=== PATIENT | female | born 1990 ===

== ENCOUNTER 2018-06-01 16:51 | Emergency (ER) | payer MEDICAID ==
[2018-06-01 16:51] VITALS: BMI 36.5
--- NOTE | 2018-06-01 18:14 | ED PDOC ---
HPI: General Adult Time Seen by Provider: 06/01/18 17:15 Chief Complaint (Nursing): Abnormal Labs Chief Complaint (Provider): Repeat Labs History Per: Patient History/Exam Limitations: no limitations Onset/Duration Of Symptoms: Days Current Symptoms Are (Timing): Still Present Additional Complaint(s): [place] Blackburn is a 28 year old female with no past medical history who is presenting to the ED for a repeat Beta-HCG. Patient was seen in [place] 2 days ago and today reports no vaginal bleeding or pain. She offers no other medical complaints at this time. Beta was 1598 on 05/30/18 PMD: none provided Past Medical History Reviewed: Historical Data, Nursing Documentation, Vital Signs Vital Signs: Last Vital Signs Temp 98.7 F 06/01/18 16:59 Pulse 85 06/01/18 16:59 Resp 16 06/01/18 16:59 BP 118/71 06/01/18 16:59 Pulse Ox 100 06/01/18 16:59 - Medical History PMH: No Chronic Diseases - Surgical History Surgical History: No Surg Hx - Family History Family History: States: Unknown Family Hx - Social History Current smoker - smoking cessation education provided: No Alcohol: None Drugs: Denies - Home Medications Home Medications: Ambulatory Orders Medication Instructions Recorded Nitrofurantoin Macrocrystals 100 mg PO BID #14 cap 05/30/18 [Macrobid] - Allergies Allergies/Adverse Reactions: Allergies Allergy/AdvReac Type Severity Reaction Status Date / Time No Known Allergies Allergy Verified 05/30/18 13:29 Review of Systems ROS Statement: Except As Marked, All Systems Reviewed And Found Negative Genitourinary Female: Negative for: Vaginal Bleeding, Pelvic Pain Physical Exam - Reviewed Nursing Documentation Reviewed: Yes Vital Signs Reviewed: Yes - Physical Exam Appears: Positive for: Well, Non-toxic, No Acute Distress Head Exam: Positive for: ATRAUMATIC, NORMAL INSPECTION, NORMOCEPHALIC Skin: Positive for: Normal Color Eye Exam: Positive for: Normal appearance Cardiovascular/Chest: Negative for: Bradycardia, Tachycardia Respiratory: Negative for: Accessory Muscle Use, Respiratory Distress Gastrointestinal/Abdominal: Positive for: Normal Exam, Soft. Negative for: Tenderness Neurologic/Psych: Positive for: Alert, Oriented. Negative for: Motor/Sensory Deficits - ECG O2 Sat by Pulse Oximetry: 100 (RA) Pulse Ox Interpretation: Normal Medical Decision Making Medical Decision Making: Time: 17:47 Plan: --Beta-HCG, Quantitative Discussed rise in hormones and what is expected. Discussed repeat US and was is likely to be seen at current hormone level. Pt denies bleeding. PT denies pelvic pain. Scribe Attestation: Documented by Alejandra Pennington, acting as a scribe for Alanna Nichole PA-C. Provider Scribe Attestation: All medical record entries made by the Scribe were at my direction and personally dictated by me. I have reviewed the chart and agree that the record accurately reflects my personal performance of the history, physical exam, medical decision making, and the department course for this patient. I have also personally directed, reviewed, and agree with the discharge instructions and disposition. Disposition - Clinical Impression Clinical Impression: - Disposition Disposition: Routine/Home Disposition Time: 18:39 Condition: GOOD Instructions: Medications and , Care Forms: [employer] (Beninese)
[2018-06-01 18:53] VITALS: BP 122/80; PULSE 72; RESP 18; TEMP 98; O2SAT 99
== END 2018-06-01 18:52 | disposition home or self-care (01) ==
LOC: H.ER 16:51
DX: Z32.01 Encounter for pregnancy test, result positive (principal)

== ENCOUNTER 2018-06-12 09:48 | Emergency (ER) | payer MEDICAID ==
[2018-06-12 09:48] VITALS: BMI 36.5
[2018-06-12 09:57] VITALS: RESP 18
--- NOTE | 2018-06-12 10:13 | ED PDOC ---
HPI: General Adult Time Seen by Provider: 06/12/18 10:04 Chief Complaint (Provider): Repeat Beta HCG History Per: Patient History/Exam Limitations: no limitations Additional Complaint(s): 28 year old female returns the ED For repeat Beta HCG labs and follow up for threatened . Patient was seen on 05/30 with Beta HCG of 3000 and inconclusive transvaginal US. Denies bleeding, abdominal pain, or cramping today. PMD: none provided Past Medical History Reviewed: Historical Data, Nursing Documentation, Vital Signs Vital Signs: Last Vital Signs Temp 98.3 F 06/12/18 09:56 Pulse 65 06/12/18 09:56 Resp 18 06/12/18 09:56 BP 112/60 06/12/18 09:56 Pulse Ox 99 06/12/18 09:56 - Medical History PMH: No Chronic Diseases - Surgical History Surgical History: No Surg Hx - Family History Family History: States: Unknown Family Hx - Home Medications Home Medications: Ambulatory Orders Medication Instructions Recorded Nitrofurantoin Macrocrystals 100 mg PO BID #14 cap 05/30/18 [Macrobid] - Allergies Allergies/Adverse Reactions: Allergies Allergy/AdvReac Type Severity Reaction Status Date / Time No Known Allergies Allergy Verified 05/30/18 13:29 Review of Systems ROS Statement: Except As Marked, All Systems Reviewed And Found Negative Gastrointestinal: Negative for: Abdominal Pain Physical Exam - Reviewed Nursing Documentation Reviewed: Yes Vital Signs Reviewed: Yes - Physical Exam Appears: Positive for: Non-toxic, No Acute Distress Head Exam: Positive for: ATRAUMATIC, NORMOCEPHALIC Skin: Positive for: Normal Color, Warm, Dry Eye Exam: Positive for: Normal appearance Neck: Positive for: Normal, Painless ROM Gastrointestinal/Abdominal: Positive for: Normal Exam, Soft. Negative for: Tenderness Extremity: Positive for: Normal ROM Neurologic/Psych: Positive for: Alert, Oriented. Negative for: Motor/Sensory Deficits - ECG O2 Sat by Pulse Oximetry: 99 (RA) Pulse Ox Interpretation: Normal Medical Decision Making Medical Decision Making: Initial Plan: --Beta HCG --Transvaginal US Scribe Attestation: Documented by Jayson Alexander acting as a scribe for Mauricio Sheldon MD. Provider Scribe Attestation: All medical record entries made by the Scribe were at my direction and personally dictated by me. I have reviewed the chart and agree that the record accurately reflects my personal performance of the history, physical exam, medical decision making, and the department course for this patient. I have also personally directed, reviewed, and agree with the discharge instructions and disposition. Disposition - Clinical Impression Clinical Impression: Threatened miscarriage - Patient ED Disposition Is Patient to be Admitted: No Counseled Patient/Family Regarding: Studies Performed, Diagnosis, Need For Followup - Disposition Referrals: [facility] [Outside] Disposition: Routine/Home Disposition Time: 12:50 Condition: FAIR Instructions: Threatened Miscarriage
--- NOTE | 2018-06-12 12:53 | US ---
Date of service: 06/12/2018 HISTORY: r/o ectopic COMPARISON: [facility] study 05/30/2018 TECHNIQUE: Transvaginal FINDINGS: UTERUS: Measures there is prominent decidual reaction and a intrauterine gestational sac whose mean sac diameter is 1 cm this is out of range. A tiny yolk sac 3 mm in size is present in the embryonic pole is also suggested probably at 0.21 cm corresponding to a 5 week 5 day gestation. The prior Amber gestational sac hemorrhagic focus is no longer seen. Compared the prior study the shape in the overall size of the gestational sac appears increased. Nevertheless no definite embryonic cardiac activity could be defined at this setting. RIGHT OVARY: Measures 2.6 x 2.0 x 1.5 cm. No solid mass. Normal flow. LEFT OVARY: Measures 3.4 x 2.2 x 2.4 cm a cm. A small hyperdense sub cm focus within the left ovary probably relates to a corpus luteal minimally complicated cysts. Normal flow. FREE FLUID: No significant free fluid noted. OTHER FINDINGS: None. IMPRESSION: Although the intrauterine gestational sac of appear slightly larger and slightly more rounded in appearance and is normal in position near the fundus, no definite embryonic cardiac activity could be identified at this setting. A small yolk sac is present. The gestational sac is out of range-emboli less than 6 weeks of gestation. The embryonic pole is estimated to be 5 weeks 5 days. No ectopic is identified. Pseudo gestational sac although not excluded is bleed less likely. Patient with serial beta HCG levels is advised. Patient's LMP is 04/19/2018 which had corresponds to a 7 week 5 day gestation per LMP. The ultrasound imaging appearance is not compatible with a viable 7 week 5 day gestation. A less advanced early intrauterine gestation is still a consideration. No gross adnexal masses seen. Consider continued serial beta HCG level follow-up as well as follow-up imaging in approximately 1 week to reassess. No adnexal masses to suggest ectopic noted. Please see above comments. Prior perigestational hemorrhage not currently visualized. No interval gestational hemorrhage noted. Continued follow-up is advised.
[2018-06-12 13:11] VITALS: BP 134/85; PULSE 73; TEMP 98.6; O2SAT 98
== END 2018-06-12 13:12 | disposition home or self-care (01) ==
LOC: H.ER 09:48
DX: O20.0 Threatened abortion (principal); Z3A.01 Less than 8 weeks gestation of pregnancy

== ENCOUNTER 2018-06-12 20:07 | Emergency (ER) | payer MEDICAID ==
[2018-06-12 20:07] VITALS: BMI 36.5
[2018-06-12 20:33] VITALS: RESP 16
--- NOTE | 2018-06-12 21:17 | ED PDOC ---
HPI: Female Pain Time Seen by Provider: 06/12/18 20:35 Chief Complaint (Nursing): Female Genitourinary Chief Complaint (Provider): ; vaginal bleeding History Per: Patient History/Exam Limitations: no limitations Onset/Duration Of Symptoms: Hrs (2) Current Symptoms Are (Timing): Better Additional Complaint(s): 28 y/o female presents for evaluation of vaginal bleeding x 2 hours. Patient states she was in ED on 05/30 for mild spotting which resolved that day, and then followed up 06/01, and today to have her beta levels checked. Patient states she also had a transvaginal ultrasound today which did not show definite IUP. Patient states tonight she noticed bleeding around 19:00 with a few blood clots, which has since improved upon arrival. Denies fever, nausea/vomiting, pelvic pain, dysuria, hematuria. Abnormal Vaginal Bleeding: Yes Last Menstral Period: 04/19/18 : 7 Para: 5 Miscarriage: 1 Past Medical History Reviewed: Historical Data, Nursing Documentation, Vital Signs Vital Signs: Last Vital Signs Temp 98.4 F 06/12/18 20:27 Pulse 83 06/12/18 20:27 Resp 16 06/12/18 20:27 BP 116/74 06/12/18 20:27 Pulse Ox 99 06/12/18 20:27 - Medical History PMH: No Chronic Diseases - Surgical History Surgical History: No Surg Hx - Family History Family History: States: Unknown Family Hx - Living Arrangements Living Arrangements: With Family - Home Medications Home Medications: Ambulatory Orders Medication Instructions Recorded Nitrofurantoin Macrocrystals 100 mg PO BID #14 cap 05/30/18 [Macrobid] - Allergies Allergies/Adverse Reactions: Allergies Allergy/AdvReac Type Severity Reaction Status Date / Time No Known Allergies Allergy Verified 06/12/18 20:24 Review of Systems ROS Statement: Except As Marked, All Systems Reviewed And Found Negative Genitourinary Female: Positive for: Vaginal Bleeding Physical Exam - Reviewed Nursing Documentation Reviewed: Yes Vital Signs Reviewed: Yes - Physical Exam Appears: Positive for: Well, Non-toxic, No Acute Distress Head Exam: Positive for: ATRAUMATIC, NORMAL INSPECTION, NORMOCEPHALIC Skin: Positive for: Normal Color Eye Exam: Positive for: Normal appearance ENT: Positive for: Normal ENT Inspection Cardiovascular/Chest: Positive for: Regular Rate, Rhythm Respiratory: Positive for: Normal Breath Sounds Gastrointestinal/Abdominal: Positive for: Normal Exam, Bowel Sounds, Soft Pelvic Exam: Positive for: External Exam Normal, No Cerv. Motion Tender, Discharge (brown discharge vaginal vault. 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 Negative for: Active Bleeding - ECG O2 Sat by Pulse Oximetry: 99 - Progress ED Course And Treament: Beta Hcg's: 05/30: 1598.10 06/01: 2106.20 06/12: 3972.[address] Kim, Staffing Consultant on-call; recommends outpatient follow up within one week Patient resting comfortably; no pain. Vitals stable Patient educated on findings, discharged with instructions to follow up with hall porter Return precautions given Disposition - Clinical Impression Clinical Impression: Threatened miscarriage - Patient ED Disposition Is Patient to be Admitted: No Counseled Patient/Family Regarding: Diagnosis, Need For Followup - Disposition Referrals: [facility] [Outside] Disposition: Routine/Home Disposition Time: 21:38 Condition: STABLE Instructions: Threatened Miscarriage Forms: [employer] (Indonesian)
[2018-06-12 22:18] VITALS: BP 120/72; PULSE 80; TEMP 98.2; O2SAT 100
== END 2018-06-12 22:18 | disposition home or self-care (01) ==
LOC: H.ER 20:07
DX: O20.0 Threatened abortion (principal)

== ENCOUNTER 2018-06-15 13:05 | Emergency (ER) | payer MEDICAID ==
[2018-06-15 13:06] VITALS: BMI 36.5
[2018-06-15 13:13] VITALS: BP 131/77; PULSE 80; RESP 18; TEMP 98.2; O2SAT 99
[2018-06-15] MEDS ORDERED: Sodium Chloride 0.9% 1,000 ML IV STA (13:43)
--- NOTE | 2018-06-15 13:47 | ED PDOC ---
HPI: Female Pain Time Seen by Provider: 06/15/18 13:42 Chief Complaint (Nursing): Female Genitourinary Chief Complaint (Provider): Vaginal Bleeding, Abdominal Pain History Per: Patient History/Exam Limitations: no limitations Onset/Duration Of Symptoms: Days (x4) Current Symptoms Are (Timing): Still Present Additional Complaint(s): 28 year old female ( A1) presents to the ED for evaluation of continued vaginal bleeding and lower abdominal cramping since 06/12. Patient notes she has been seen here for serial beta-HCGs and her last US showed a gestation consi stent with 5 weeks even though after calculating from her last menstrual period on 04/19 she should be 7 weeks, prompting concern and repeat US today. Additionally, she reports having to use 3 pads in the last 24 hours to control her vaginal bleeding. No other complaints. PMD: [facility] Past Medical History Reviewed: Historical Data, Nursing Documentation, Vital Signs Vital Signs: Last Vital Signs Temp 98.2 F 06/15/18 13:09 Pulse 80 06/15/18 13:09 Resp 18 06/15/18 13:09 BP 131/77 06/15/18 13:09 Pulse Ox 99 06/15/18 13:09 - Medical History PMH: No Chronic Diseases - Surgical History Other surgeries: D&C - Family History Family History: States: Unknown Family Hx - Home Medications Home Medications: Ambulatory Orders Medication Instructions Recorded Nitrofurantoin Macrocrystals 100 mg PO BID #14 cap 05/30/18 [Macrobid] Acetaminophen [Acetaminophen 8 650 mg PO Q8 PRN #21 tablet.er 06/15/18 Hour] Nitrofurantoin Macrocrystals 100 mg PO BID #14 cap 06/15/18 [Macrobid] - Allergies Allergies/Adverse Reactions: Allergies Allergy/AdvReac Type Severity Reaction Status Date / Time No Known Allergies Allergy Verified 06/15/18 13:08 Review of Systems ROS Statement: Except As Marked, All Systems Reviewed And Found Negative Gastrointestinal: Positive for: Abdominal Pain (lower, cramping) Genitourinary Female: Positive for: Vaginal Bleeding Physical Exam - Reviewed Nursing Documentation Reviewed: Yes Vital Signs Reviewed: Yes - Physical Exam Comments: GENERAL APPEARANCE: Patient is awake, alert, oriented x 3, in no acute distress. Resting comfortably, on cell phone. SKIN: Warm, dry; (-) cyanosis. EYES: (-) conjunctival pallor, (-) scleral icterus. ENMT: Mucous membranes moist. NECK: Supple, FROM CHEST AND RESPIRATORY: (-) rales, (-) rhonchi, (-) wheezes; breath sounds equal bilaterally. Respirations even and nonlabored. HEART AND CARDIOVASCULAR: (-) irregularity ABDOMEN AND GI: Soft (-) distention. Bowel sounds active x4; (+) tenderness in lower abdomen, most notably suprapubic (-) guarding, (-) rebound, (-) CVA tenderness. EXTREMITIES: (-) deformity, (-) edema NEURO AND PSYCH: Mental status as above; (-) focal findings. Gait: steady. Speech: clear. (-) facial asymmetry (-) aphasia - Laboratory Results Result Diagrams: 06/15/18 14:06/15/18 14:22 Urine POC: Positive Urine dip results: Positive for: Leukocyte Esterase (small), Blood (large), Protein (30). Negative for: Nitrate, Ketones, Glucose, Bilirubin - ECG O2 Sat by Pulse Oximetry: 99 (RA) Pulse Ox Interpretation: Normal Medical Decision Making Medical Decision Making: Initial Impression: vaginal bleeding and abdominal pain in 1st trimester; threatened miscarriage Time: 1340 Initial Plan: --Type and screen --BMP --Beta-HCG quant --U-preg --U-dip --CBC with differential --Normal saline IV --Tylenol 975mg PO --US OB/Transvaginal As per old charts: Beta HCGs: 05/30: 1598.10 06/01: 2106.20 06/12: 3972.10 1540 Beta HCG result: 06/15 (today) 1584.80 Labs reviewed. CBC unremarkable. H&H stable. BMP unremarkable. Pending U/S for further evaluation of miscarriage. Patient sleeping comfortably on re-evaluation. No distress noted. 1605 Udip reviewed. U/A and U/C ordered. 1730 Patient in U/S. U/A reviewed (+) UTI. Macrobid 100mg PO ordered. Type and Screen: B positive 1840 US radiology report follows COMMENTS: heart motion is not present. Yolk sac is identified measuring 0.2 cm. pole is not identified. Gestational sac is seen with mean sac diameter of 0.8 cm, out of range for gestational age. The cervical length is 3.7 cm. The uterus is anteverted measuring 9.3 x 5 x 7.3 cm with no masses identified. The right ovary measures 2.3 x 1.4 x 1.7 cm. The left ovary measures 2 x2 x 2.4 cm. The right ovary is free of masses. Left ovarian hemorrhagic corpus luteum cyst is seen measuring 1.8 x 1.6 x 1.7 cm. Blood flow is demonstrated within both ovaries. There is no evidence of free fluid within the pelvic cul-de-sac. IMPRESSION: 1. Gestational sac and yolk sac, out of range for gestational age. 2. Left ovarian hemorrhagic corpus luteum cyst. 3. Consider short term follow up study in 7-10 days if clinically warranted On re-evaluation, patient offers no complaints. On exam, patient remains AAOx3, in no acute distress. Vitals stable. Lab/Diagnostic results d/w the patient in great detail. Diagnosis of miscarriage, UTI d/w the patient. Based on history, exam and diagnostic results, plan will be for outpatient follow up with OBGYN. Patient instructed to follow-up with pmd / referral provided / the clinic in 1- 2 days without fail. Advised to take medication as prescribed. Return to the emergency room at any time for any new or worsening symptoms. Patient states she fully agrees with and understands discharge instructions. States that she agrees with the plan and disposition. Verbalized and repeated discharge instructions and plan. I have given the patient opportunity to ask any additional questions. Scribe Attestation: Documented by Dianna Epperson, acting as a scribe for Antoinette Chavez PA-C. Provider Scribe Attestation: All medical record entries made by the Scribe were at my direction and personally dictated by me. I have reviewed the chart and agree that the record accurately reflects my personal performance of the history, physical exam, medical decision making, and the department course for this patient. I have also personally directed, reviewed, and agree with the discharge instructions and disposition. Disposition - Clinical Impression Clinical Impression: Urinary tract infection, Miscarriage - Patient ED Disposition Is Patient to be Admitted: No Counseled Patient/Family Regarding: Studies Performed, Diagnosis, Need For Followup, Rx Given - Disposition Referrals: primary, doctor [Other] [facility] [Outside] Disposition: Routine/Home Disposition Time: 18:40 Condition: STABLE Additional Instructions: The emergency medical care you received today was directed at your acute symptoms. If you were prescribed any medication, please fill it and take as directed. It may take several days for your symptoms to resolve. Return to the Emergency Department if your symptoms worsen, do not improve, or if you have any other problems. Please contact your doctor in 2 days for re-evaluation and follow up / or call one of the physicians/clinics you have been referred to that are listed on the Patient Visit Information form that is included in your discharge packet. Bring any paperwork you were given at discharge with you along with any medications you are taking to your follow up visit. Our treatment cannot replace ongoing medical care by a primary care provider (PCP) outside of the emergency department. Prescriptions: Acetaminophen [Acetaminophen 8 Hour] 650 mg PO Q8 PRN #21 tablet.er PRN Reason: Pain, Moderate (4-7) Nitrofurantoin Macrocrystals [Macrobid] 100 mg PO BID #14 cap Instructions: Urinary Tract Infections in Adults, Dealing With Miscarriage, Miscarriage (DC) Forms: [employer] (Slovenian) Print Language: TURKISH - POA Present On Arrival: None Results - Lab Results Lab Results: 06/15/18 06/15/18 06/15/18 16:45 14:55 14:22 WBC RBC Hgb Hct MCV MCH MCHC RDW Plt Count MPV Neut % (Auto) Lymph % (Auto) Cobb % (Auto) Eos % (Auto) Baso % (Auto) Neut # (Auto) Lymph # (Auto) Cobb # (Auto) Eos # (Auto) Baso # (Auto) Sodium Potassium Chloride Carbon Dioxide Anion Gap BUN Creatinine Est GFR ( Amer) Est GFR (Non-Af Amer) Random Glucose Calcium Beta HCG, Quant Urine Color Yellow Urine Clarity Cloudy Urine pH 6.0 Ur Specific Gary 1.014 Urine Protein 30 Urine Glucose (UA) Neg Urine Ketones Negative Urine Blood Large Urine Nitrate Negative Urine Bilirubin Negative Urine Urobilinogen 0.2-1.0 Ur Leukocyte Esterase Mod Urine RBC (Auto) 941 H Urine Microscopic WBC 51 H Ur Squamous Epith Cells 6 H Blood Type B POSITIVE Blood Type Confirm B POSITIVE Antibody Screen Negative BBK History Checked No verified bt 06/15/18 06/15/18 06/15/18 14:22 14:22 14:22 WBC 8.0 RBC 4.06 Hgb 11.8 L Hct 36.8 MCV 90.7 MCH 29.0 MCHC 32.0 L RDW 14.4 Plt Count 276 MPV 10.0 Neut % (Auto) 70.1 Lymph % (Auto) 19.8 L Cobb % (Auto) 7.3 Eos % (Auto) 2.4 Baso % (Auto) 0.4 Neut # (Auto) 5.6 Lymph # (Auto) 1.6 Cobb # (Auto) 0.6 Eos # (Auto) 0.2 Baso # (Auto) 0.0 Sodium 138 Potassium 4.4 Chloride 102 Carbon Dioxide 28 Anion Gap 12 BUN 17 Creatinine 0.7 Est GFR ( Amer) > 60 Est GFR (Non-Af Amer) > 60 Random Glucose 91 Calcium 9.5 Beta HCG, Quant 1584.80 Urine Color Urine Clarity Urine pH Ur Specific Gary Urine Protein Urine Glucose (UA) Urine Ketones Urine Blood Urine Nitrate Urine Bilirubin Urine Urobilinogen Ur Leukocyte Esterase Urine RBC (Auto) Urine Microscopic WBC Ur Squamous Epith Cells Blood Type Blood Type Confirm Antibody Screen BBK History Checked
[2018-06-15 14:43] LABS: BASO % 0.4 % (0.0-2.0); EOS # 0.2 K/uL (0.0-0.7); EOS % 2.4 % (0.0-4.0); HEMOGLOBIN 11.8 g/dL (12.0-16.0); LYMPH # 1.6 K/uL (1.0-4.3); LYMPH % 19.8 % (20.0-40.0); MEAN CELL VOLUME 90.7 fl (81.0-99.0); MONO # 0.6 K/uL (0.0-0.8); MONO % 7.3 % (0.0-10.0); NEUT # 5.6 K/uL (1.8-7.0); NEUT % 70.1 % (50.0-75.0); NRBC % 0.2 % (0.0-0.0); RBC 4.06 Mil/uL (3.80-5.20); RED CELL DISTRIBUTION WIDTH 14.4 % (11.5-14.5)
[2018-06-15 14:53] LABS: BLOOD UREA NITROGEN 17 mg/dl (7-17); CALCIUM 9.5 mg/dL (8.4-10.2); GFR NON-AFRICAN AMERICAN > 60
[2018-06-15 17:06] LABS: SQUAMOUS EPITHIAL 6 /hpf (0-5); URINE BILIRUBIN NEGATIVE (NEGATIVE); URINE BLOOD LARGE (NEGATIVE); URINE CLARITY CLOUDY (Clear); URINE COLOR YELLOW (YELLOW); URINE GLUCOSE (UA) NEG (NEGATIVE); URINE LEUKOCYTE ESTERASE MOD Leu/uL (Negative); URINE PROTEIN 30 mg/dL (NEGATIVE); URINE UROBILINOGEN 0.2-1.0 mg/dL (0.2-1.0)
--- NOTE | 2018-06-16 13:02 | US ---
Date of service: 06/15/2018 HISTORY: The bleeding t bleeding COMPARISON: None available. TECHNIQUE: Transvaginal sonographic evaluation of the pelvis performed. Comparison made with prior study 06/12/2018. FINDINGS: UTERUS: Measures 8.3 x 5.0 x 7.3 cm. ENDOMETRIUM: There is a small elliptical shaped fluid collection within the endometrial canal that may represent gestational sac. Measurements: Gestational sac: MS D = 0.8 cm = out of range Yolk sac: 0.2 cm pole: Not visualized Heart motion: Not detected While no definitive evidence of ectopic noted at this time, the possibility of an ectopic cannot be excluded on this study therefore recommend continued follow-up serial serum beta HCG and serial pelvic ultrasounds. CERVIX: No cervical abnormality identified. Cervix is closed and measures approximately 3.7 cm RIGHT OVARY: Measures 2.3 x 1.4 x 1.7 cm. No solid mass. Normal flow. LEFT OVARY: Measures 2.0 x 2.0 x 2.4 cm. No solid mass. Normal flow. Hemorrhagic corpus luteum cyst measuring 1.8 x 1.6 x 1.7 cm of FREE FLUID: No significant free fluid noted. OTHER FINDINGS: None. IMPRESSION: Apparent very early intrauterine gestation with no pole detected at this time the. Possibility of an ectopic however cannot be excluded. Recommend follow-up serial serum beta HCG and serial pelvic ultrasounds to assess for development of viable intrauterine gestation and exclude the possibility of an ectopic . Report placed in PA review folder for follow up
== END 2018-06-15 19:01 | disposition home or self-care (01) ==
LOC: H.ER 13:05
DX: O03.88 Urinary tract infection following complete or unspecified spontaneous abortion (principal); O03.9 Complete or unspecified spontaneous abortion without complication